=== PATIENT | female | born 2000 | race Caucasian/White ===

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

== ENCOUNTER 2021-01-28 12:27 | Emergency (ER) | payer OTHER ==
[2021-01-28 12:37] VITALS: BP 123/76; PULSE 83; RESP 18; TEMP 98
[2021-01-28 13:23] LABS: Appearance,Urine Turbid (Clear); Bacteria,Urine Moderate /hpf; Bilirubin,Urine Negative (Negative); Blood,Urine Large (Negative); Color,Urine Light Red; Glucose,Urine (UA) Negative (Negative); Ketones,Urine Trace (Negative); Leukocyte Esterase,Urine Large (Negative); Mucus,Urine Many /hpf; Nitrite,Urine Negative (Negative); PH, Urine 5.5 (5.0-8.0); Protein,Urine 2+ (Negative); RBC,Urine >182 /hpf (0-5); Specific Gravity,Urine 1.024 (1.001-1.035); Squamous Epithelial Cell,Urine 5 /hpf (0-4); Urobilinogen,Urine <2.0 mg/dL (<2.0); WBC,Urine >182 /hpf (0-5)
[2021-01-28] MEDS ORDERED: cefTRIAXone 1,000 MG VIAL (IM USE) IM STA (13:26)
--- NOTE | 2021-01-28 13:43 | ED ---
Female Urogenital HPI - General Chief complaint: Urogenital Stated complaint: Blood in urine Time Seen by Provider: 01/28/21 12:39 Source: patient Mode of arrival: ambulatory Limitations: no limitations - History of Present Illness Initial comments: Patient is a 20-year-old female presenting to emergency Department with complaints of hematuria and some dysuria that she first noticed this morning. Patient states she has been feeling a little bit of increase in frequency since yesterday and thought she might have a UTI. Patient denies being , she denies any abdominal pain, no back pain or flank pain, no nausea or vomiting. She denies any vaginal discharge or any concerns for STDs. She has no further complaints. - Related Data Home Medications Medication Instructions Recorded Confirmed Acetaminophen [Tylenol] 500 mg PO Q4-6H PRN 05/29/20 05/29/20 Pnv No.95/Ferrous Fum/Folic AC 1 each PO DAILY 05/29/20 05/29/20 [ Multivitamin Tablet] Previous Rx's Medication Instructions Recorded Cephalexin [Keflex] 500 mg PO Q6HR 5 Days #20 cap 01/28/21 Allergies Allergy/AdvReac Type Severity Reaction Status Date / Time No Known Allergies Allergy Verified 01/28/21 12:37 Review of Systems ROS Statement: Those systems with pertinent positive or pertinent negative responses have been documented in the HPI. ROS Other: All systems not noted in ROS Statement are negative. Past Medical History Past Medical History: No Reported History Additional Past Medical History / Comment(s): hx migraines, History of Any Multi-Drug Resistant Organisms: None Reported Past Surgical History: Cholecystectomy Past Anesthesia/Blood Transfusion Reactions: No Reported Reaction Additional Past Anesthesia/Blood Transfusion Reaction / Comment(s): never had anesthesia Past Psychological History: ADD/ADHD, Anxiety, Depression Smoking Status: Never smoker Past Alcohol Use History: Occasional Past Drug Use History: Marijuana - Past Family History Mother History Unknown: Yes Family Medical History: No Reported History General Exam - General Exam Comments Initial Comments: GENERAL: Patient is well-developed and well-nourished. Patient is nontoxic and in no acute distress. HEAD: Atraumatic, normocephalic. EYES: Pupils equal round and reactive to light, extraocular movements intact, sclera anicteric, conjunctiva are normal. Eyelids were unremarkable. ENT: Moist mucous membranes. NECK: Normal range of motion, supple without lymphadenopathy or JVD. LUNGS: Unlabored respirations. Breath sounds clear to auscultation bilaterally and equal. No wheezes rales or rhonchi. HEART: Regular rate and rhythm without murmurs, rubs or gallops. ABDOMEN: Soft, nontender, normoactive bowel sounds. No guarding, no rebound. No masses appreciated. : Deferred MUSCULOSKELETAL: Normal extremities with adequate strength and normal range of motion, no pitting or edema. No clubbing or cyanosis. SKIN: Warm, Dry, normal turgor, no rashes or lesions noted. Limitations: no limitations Course Vital Signs 01/28/21 12:35 Temperature 98.0 F Pulse Rate 83 Respiratory 18 Rate Blood Pressure 123/76 O2 Sat by Pulse 99 Oximetry Medical Decision Making - Medical Decision Making Patient is a 20-year-old female here with hematuria, dysuria that started this morning. She'll open her frequency yesterday. She denies being . No fevers, no abdominal pain, no flank pain, no vaginal discharge or concerns for STDs. Urine does reveal evidence for a UTI, moderate bacteria, urine culture is pending. I did recommend a shot of antibiotics and will start her on Keflex for UTI. Patient was in agreement with this. While waiting for her shot, patient would not follow instructions about keeping her mask on and then ended up leaving before her shot. I already sent her antibiotic to her pharmacy. She can follow up with her primary care. She was in agreement with this plan of care. - Lab Data Lab Results 01/28/21 01/28/21 Range/Units 12:59 12:59 Urine Color Light Red Urine Appearance Turbid H (Clear) Urine pH 5.5 (5.0-8.0) Ur Specific [place] 1.024 (1.001-1.035) Urine Protein 2+ H (Negative) Urine Glucose (UA) Negative (Negative) Urine Ketones Trace H (Negative) Urine Blood Large H (Negative) Urine Nitrite Negative (Negative) Urine Bilirubin Negative (Negative) Urine Urobilinogen <2.0 (<2.0) mg/dL Ur Leukocyte Esterase Large H (Negative) Urine RBC >182 H (0-5) /hpf Urine WBC >182 H (0-5) /hpf Ur Squamous Epith Cells 5 H (0-4) /hpf Urine Bacteria Moderate H (None) /hpf Urine Mucus Many H (None) /hpf Urine HCG, Qual Not Detected (Not Detectd) Disposition Clinical Impression: UTI (urinary tract infection) Disposition: HOME SELF-CARE Condition: Stable Instructions (If sedation given, give patient instructions): Urinary Tract Infection in Women (ED) Additional Instructions: Please return to the Emergency Department if symptoms worsen or any other concerns. Please take antibiotics as directed starting this evening. Drink plenty of water and fluids. Trial of Pyridium for any burning or discomfort. Also try Motrin or Tylenol. Follow up with your primary care physician. Prescriptions: Cephalexin [Keflex] 500 mg PO Q6HR 5 Days #20 cap Is patient prescribed a controlled substance at d/c from ED?: No Referrals: Henna Fragoso DO [Primary Care Provider] - 1-2 days Time of Disposition: 13:43
== END 2021-01-28 14:24 | disposition home or self-care (01) ==
LOC: EC 12:27
DX: N39.0 Urinary tract infection, site not specified (principal)
CPT/HCPCS: 81001; 81025; 87086; 99283

== ENCOUNTER 2021-05-17 18:53 | Emergency (ER) | payer OTHER ==
[2021-05-17] MEDS ORDERED: ACETAMINOPHEN TAB 325 MG TAB PO STA (19:49)
[2021-05-17] MEDS ORDERED: IBUPROFEN 600 MG TAB PO STA (19:49)
[2021-05-17 20:21] VITALS: BP 107/65; PULSE 99; RESP 18
[2021-05-17] MEDS ORDERED: DEXAMETHASONE SOD PHOSPHATE 10 MG/ML 1 ML VIAL IVP STA (20:30)
[2021-05-17] MEDS ORDERED: DEXAMETHASONE SOD PHOSPHATE 10 MG/ML 1 ML VIAL IM STA (20:42)
--- NOTE | 2021-05-17 20:42 | ED ---
URI HPI - General Chief Complaint: Upper Respiratory Infection Stated Complaint: Covid+, SOB, dizzy Time Seen by Provider: 05/17/21 19:49 Source: patient, RN notes reviewed Mode of arrival: ambulatory Limitations: no limitations - History of Present Illness Initial Comments: Patient is a 20-year-old female that presents to the emergency department compl aining of cough upper respiratory tract symptoms and fever for the past day. Patient denied taking any Tylenol Motrin at home. Patient notes she came to the hospital due to Covid tested and a workup. Patient didn't appear to be mildly uncomfortable in bed. She denied any chest pain shortness of breath headache nausea vomiting diarrhea constipation fatigue chills. - Related Data Home Medications Medication Instructions Recorded Confirmed Acetaminophen [Tylenol] 500 mg PO Q4-6H PRN 05/29/20 05/29/20 Pnv No.95/Ferrous Fum/Folic AC 1 each PO DAILY 05/29/20 05/29/20 [ Multivitamin Tablet] Previous Rx's Medication Instructions Recorded Cephalexin [Keflex] 500 mg PO Q6HR 5 Days #20 cap 01/28/21 Allergies Allergy/AdvReac Type Severity Reaction Status Date / Time No Known Allergies Allergy Verified 05/17/21 19:42 Review of Systems ROS Statement: Those systems with pertinent positive or pertinent negative responses have been documented in the HPI. ROS Other: All systems not noted in ROS Statement are negative. Past Medical History Past Medical History: No Reported History Additional Past Medical History / Comment(s): hx migraines, History of Any Multi-Drug Resistant Organisms: None Reported Past Surgical History: Cholecystectomy Past Anesthesia/Blood Transfusion Reactions: No Reported Reaction Additional Past Anesthesia/Blood Transfusion Reaction / Comment(s): never had anesthesia Past Psychological History: ADD/ADHD, Anxiety, Depression Smoking Status: Never smoker Past Alcohol Use History: Occasional Past Drug Use History: Marijuana - Past Family History Mother History Unknown: Yes Family Medical History: No Reported History General Exam Limitations: no limitations General appearance: alert, in no apparent distress Head exam: Present: atraumatic, normocephalic, normal inspection Eye exam: Present: normal appearance, PERRL, EOMI. Absent: scleral icterus, conjunctival injection, periorbital swelling ENT exam: Present: normal exam, mucous membranes moist Neck exam: Present: normal inspection. Absent: tenderness, meningismus, lymphadenopathy Respiratory exam: Present: normal lung sounds bilaterally. Absent: respiratory distress, wheezes, rales, rhonchi, stridor Cardiovascular Exam: Present: regular rate, normal rhythm, normal heart sounds. Absent: systolic murmur, diastolic murmur, rubs, gallop, clicks GI/Abdominal exam: Present: soft, normal bowel sounds. Absent: distended, tenderness, guarding, rebound, rigid Extremities exam: Present: normal inspection, full ROM, normal capillary refill. Absent: tenderness, pedal edema, joint swelling, calf tenderness Neurological exam: Present: alert, oriented X3 Psychiatric exam: Present: normal affect, normal mood Skin exam: Present: warm, dry, intact, normal color. Absent: rash Course Vital Signs 05/17/21 05/17/21 19:40 20:19 Temperature 102.4 F H Pulse Rate 118 H 99 Respiratory 22 18 Rate Blood Pressure 123/72 107/65 O2 Sat by Pulse 99 99 Oximetry Medical Decision Making - Medical Decision Making 20-year-old female with upper respiratory tract symptoms including fever cough. Covid test, chest x-ray, 600 mg of Motrin, 650 mg Tylenol ordered. Patient was informed she does meet the criteria for monoclonal antibodies. Covid test positive. Upon reevaluation patient declined monoclonal antibodies that she just wants to go home and would rather feeling garbage and try to get an IV started. Patient was informed that we highly recommended monoclonal antibodies. A shunt still declined. Case discussed with Dr. Butts, patient can discharge home with conservative management and follow-up to primary care. - Lab Data Lab Results 05/17/21 Range/Units 19:43 Coronavirus (PCR) Detected A (Not Detectd) Disposition Clinical Impression: COVID Disposition: HOME SELF-CARE Condition: Stable Instructions (If sedation given, give patient instructions): Coronavirus Disease 2019 (COVID-19) Additional Instructions: Please return to the Emergency Department if symptoms worsen or any other concerns. Take Tylenol Motrin alternating every 3 hours. Increase fluids get a rest. Is patient prescribed a controlled substance at d/c from ED?: No Referrals: Henna Fragoso DO [Primary Care Provider] - 1-2 days Time of Disposition: 20:41
[2021-05-17 20:51] VITALS: TEMP 99.1
--- NOTE | 2021-05-17 20:52 | XR ---
EXAMINATION TYPE: XR chest 2V DATE OF EXAM: 05/17/2021 COMPARISON: 04/19/2019 HISTORY: Body aches. Fever TECHNIQUE: FINDINGS: Heart and mediastinum are normal. Lungs are clear. Diaphragm is normal. Bony thorax appears normal. IMPRESSION: Normal chest.
== END 2021-05-17 20:51 | disposition home or self-care (01) ==
LOC: EC 18:53
DX: U07.1 COVID-19 (principal)
CPT/HCPCS: 87635; 71046; 99285; 96372; J1100